=== PATIENT | female | born 1950 | race Caucasian/White ===

== ENCOUNTER → 2018-05-21 | Day surgery (SDC) | payer MEDICARE, OTHER ==
[2018-05-20 15:28] LABS: BASOPHILS # (AUTO) 0.1 (0.0-0.1); EOSINOPHILS # (AUTO) 0.4 (0.0-0.4); EOSINOPHILS % 5.6 % (0.0-6.0); HEMATOCRIT 35.7 % (34.2-44.1); LYMPHOCYTES # (AUTO) 1.2 (1.0-3.2); LYMPHOCYTES % 16.7 % (18.0-39.1); MEAN CORPUSCULAR HEMOGLOBIN 25.5 pg (28-32); MEAN CORPUSCULAR HGB CONC 30.8 g/dL (31-35); MEAN CORPUSCULAR VOLUME 82.6 fL (81-99); MONOCYTES # (AUTO) 0.8 (0.2-0.8); MONOCYTES % 10.9 % (4.4-11.3); NEUTROPHILS # (AUTO) 4.7 (2.1-6.9); NEUTROPHILS % 65.5 % (38.7-80.0); PLATELET COUNT 235 x10e3/uL (140-360); RED BLOOD COUNT 4.32 x10e6/uL (3.6-5.1); RED CELL DISTRIBUTION WIDTH 16.1 % (11.7-14.4)
[~2018-05-21] MED LIST: EFFEXOR XR 3737.5 MG PO; GABAPENTIN300 MG PO; PANTOPRAZOLE SO40 MG PO; PERCOCET 7.5-31 EACH PO; PROPOFOL IV EMULSION 10 MG/ML 20 ML VIAL ONE; ROBAXIN-750750 MG PO; SPIRONOLACTONE25 MG PO
--- OUTSIDE RECORDS SUMMARY | 2018-05-21 06:19 | XMS REPORT | Clinical Summary ---
Author Author [facility] Organization [facility] Address Unknown Phone Unavailable Care Team Providers Care Director Transition Name Role Phone Anastasia Iglesias DO PCP Unavailable Allergies No Known Allergies Medications End Date Status Medication Sig Dispensed Refills Start Date Active clonIDINE (CATAPRES) 0.1 Take 0.1 mg 0 MG tablet by mouth daily. Active acetaminophen-codeine Take 1 tablet 0 (TYLENOL WITH CODEINE #3) by mouth 300-30 mg per tablet every 12 (twelve) hours as needed for mild pain or moderate pain. Active ELIQUIS 5 mg tablet 0 8 Active oxyCODone-acetaminophen 0 (PERCOCET) 7.5-325 mg per 8 tablet Active gabapentin (NEURONTIN) TK 2 CS PO 5 300 mg capsule TID 8 Active venlafaxine XR TK 2 TS PO QD 0 (EFFEXOR-XR) 150 MG 24 hr 8 capsule Active tiZANidine (ZANAFLEX) 2 0 MG tablet 8 08/16/2017 Discontinued lisinopril Take by mouth 0 (PRINIVIL,ZESTRIL) 10 mg daily. tablet 08/16/2017 Discontinued gabapentin (NEURONTIN) Take 600 mg 0 600 mg tablet by mouth 3 (three) times a day. 08/16/2017 Discontinued levothyroxine (SYNTHROID, Take 175 mcg 0 LEVOXYL) 175 mcg tablet by mouth every morning. 08/16/2017 Discontinued keTOROlac (TORadol) 10 mg Take 10 mg by 0 tablet mouth every 8 (eight) hours. 08/27/2017 Discontinued furosemide (LASIX) 40 mg TK 1 T PO BID 3 tablet 8 09/26/2017 furosemide (LASIX) 40 mg Take 1 tablet 60 tablet 0 //201 tablet (40 mg total) 8 by mouth daily as needed (pitting edema) for up to 30 days. 09/26/2017 capsaicin (ZOSTRIX) 0.025 Apply 60 g 0 /20/201 % cream topically 3 8 (three) times a day for 30 days. Active Problems Problem Noted Date Bilateral leg edema 08/20/2017 Leg pain 08/16/2017 Lymphedema of both lower extremities 08/16/2017 Pain 12/28/2016 Encounters Care Team Description Date Type Specialty Caleb Hansen, ALYCE 08/23/2017 Anesthesia Orthopedic Surgery Event Elisabeth Cordova MD RIGHT TOTAL HIP REPLACEMENT 08/23/2017 Surgery Orthopedic Surgery Mack Zhao MD Leg swelling; Osteoarthritis of right hip, unspecified osteoarthritis type 08/16/2017 Hospital Orthopedic Surgery - Encounter 08/27/2017 Mack Zhao MD 08/16/2017 Documentation Internal Medicine Mack Zhao MD Leg swelling (Primary Dx) 08/16/2017 Orders Only Internal Medicine Elisabeth Cordova MD 08/16/2017 Orders Only Orthopedic Surgery Chacorta Collazo DO Pedal edema (Primary Dx); Chronic pain of right hip 07/31/2017 Emergency Emergency Medicine - 08/01/2017 Anastasia Iglesias DO Long-term (current) use of anticoagulants (Primary Dx) 06/19/2017 Lab Lab after 05/20/2017 Social History Date Tobacco Use Types Packs/Day Years Used Never Smoker Smokeless Tobacco: Never Used Alcohol Use Drinks/Week oz/Week Comments Yes a beer per month Sex Assigned at Date Recorded Not on file Industry Job Start Date Occupation Not on file Not on file Not on file Travel End Travel History Travel Start No recent travel history available. Last Filed Vital Signs Time Taken Vital Sign Reading 08/27/2017 12:31 PM CDT Blood Pressure 107/57 08/27/2017 12:31 PM CDT Pulse 69 08/27/2017 12:31 PM CDT Temperature 36.9 C (98.4 F) 08/27/2017 12:31 PM CDT Respiratory Rate 16 08/27/2017 12:31 PM CDT Oxygen Saturation 95% - Inhaled Oxygen - Concentration 08/26/2017 8:14 PM CDT Weight 74.8 kg (165 lb 0 oz) 08/26/2017 8:14 PM CDT Height 157.5 cm (5' 2") 08/26/2017 8:14 PM CDT Body Mass Index 30.18 Plan of Treatment Health Maintenance Due Date Last Done Comments BREAST CANCER SCREENING 08/07/2001 COLON CANCER SCREENING 08/07/2001 SHINGRIX VACCINE (1 of 2) 08/07/2001 ZOSTER VACCINE 2011 PNEUMOCOCCAL 08/07/2016 POLYSACCHARIDE VACCINE AGE 65 AND OVER PNEUMOCOCCAL-13 08/07/2016 INFLUENZA VACCINE 01/08/2018 Implants Device Identifier Shelf Expiration Date Model / Serial / Lot Implanted Type Area Manufactur er 04/09/2027 [id number] / / Screw Bone Canc Dome 6.5x25mm Ltxf Hip Joint Right: Hip DEPUY Hamilton - [id number] Implants ORTHO Implanted: Qty: 1 on 08/23/2017 by Elisabeth Cordova MD 04/09/2027 [id number] / / Screw Bone Canc Dome 6.5x25mm Ltxf Hip Joint Right: Hip DEPUY Hamilton - [id number] Implants ORTHO Implanted: Qty: 1 on 08/23/2017 by Elisabeth Cordova MD 03/09/2027 [id number] / / [id number] Shell Actblr Sector W/ Gription Hip Joint Right: Hip DEPUY 52mm Hamilton - [id number] Implants ORTHO-KNEE Implanted: Qty: 1 on 08/23/2017 by Elisabeth Marshall MD 03/09/2022 [id number] / / [id number] Liner Actblr Neut Altra Linked Pe Hip Joint Right: Hip DEPUY 77s87ar +4 Altrx - [id number] Implants ORTHO-KNEE Implanted: Qty: 1 on 08/23/2017 by Elisabeth Marshall MD 08/07/2026 [id number] / / [id number] Stem Hip Cmntls Tprd Procoat Pors Hip Joint Right: Hip DEPUY Ctng Hiofst Ti Alloy 150mm - Implants ORTHO [id number] Implanted: Qty: 1 on 08/23/2017 by Elisabeth Cordova MD 05/09/2022 [id number] / / [id number] [place] Fracture System Biolox Delta IPM Right: Hip DEPUY Ceramic Femoral Heads Size 36 +5.0 IMPLANT ORTHOPAEDI Mm Articul/Stanislav 05/23 [employer] Femoral Heads - [id number] Implanted: Qty: 1 on 08/23/2017 by Elisabeth Cordova MD Procedures Comments Procedure Name Priority Date/Time Associated Diagnosis HEMOGLOBIN & HEMATOCRIT Routine 08/25/2017 3:56 PM CDT HC COMPLETE BLD COUNT Routine 08/25/2017 W/AUTO DIFF 4:25 AM CDT ZZESTIMATED GFR Routine 08/25/2017 4:00 AM CDT BASIC METABOLIC PANEL Routine 08/25/2017 4:00 AM CDT ZZESTIMATED GFR Routine 08/24/2017 6:10 AM CDT BASIC METABOLIC PANEL Routine 08/24/2017 6:10 AM CDT HC COMPLETE BLD COUNT Routine 08/24/2017 W/AUTO DIFF 6:10 AM CDT XR PELVIS 1 OR 2 VW Routine 08/23/2017 4:28 PM CDT HEMOGLOBIN & HEMATOCRIT STAT 08/23/2017 4:15 PM CDT SURGICAL PATHOLOGY Routine 08/23/2017 REQUEST 4:13 PM CDT POC GLUCOSE Routine 08/23/2017 4:10 PM CDT IONIZED CALCIUM, ARTERIAL STAT 08/23/2017 3:09 PM CDT HEMOGLOBIN, SYRINGE STAT 08/23/2017 3:09 PM CDT POTASSIUM, SYRINGE STAT 08/23/2017 3:09 PM CDT SODIUM LEVEL, SYRINGE STAT 08/23/2017 3:09 PM CDT ARTERIAL BLOOD GAS STAT 08/23/2017 3:09 PM CDT XR PELVIS 1 OR 2 VW Routine 08/23/2017 3:01 PM CDT POC PANEL 4 Routine 08/23/2017 2:44 PM CDT ARTERIAL LINE Routine 08/23/2017 2:24 PM CDT Procedure Note - Gabby Roberts MD - 08/23/2017 2:24 PM CDT Arterial line Performed by: GABBY ROBERTS Authorized by: GABBY ROBERTS Patient Location: OR Start Time: 08/23/2017 1:14 PM End Time: 08/23/2017 1:18 PM Staff: Anesthesio logist: GABBY ROBERTS Performed by: Anesthesio logist Pre-proced ure: patient identified , IV checked, site and side verified, risks and benefits discussed, procedure verified, surgical consent complete, patient position confirmed, monitors and equipment checked and pre-op evaluation complete MSBT: antiseptic used, all elements of maximal sterile barrier technique followed, hand hygiene performed, cap/gown used by other personnel and solutions labeled TIme Out Performed: 08/23/2017 1:14 PM Indication s: Indication s: hemodynami c monitoring Anesthesia : Anesthesia : General Procedure Details: Arterial Line placement: Placed post induction Line placement site: Radial Line placement side: Right Arterial line gauge: 20 G Number of attempts: 1 Ultrasound guidance used: No Post-proce dure: Post-proce dure: Sterile dressing applied Post procedure circulatio n, sensation, movement: Normal Patient tolerance: Patient tolerated the procedure well with no immediate complicati ons Notes: Uncomplica [place] insertion; applicatio n of CHG sterile dressing SC AN ELECTIVE Routine 08/23/2017 ENDOTRACHEAL AIRWAY 1:57 PM CDT Procedure Note - Caleb Hansen CRNA - 08/23/2017 1:57 PM CDT Airway Date/Time: 08/23/2017 1:15 PM Performed by: CALEB HANSEN Authorized by: GABBY ROBERTS Location: OR Urgency: Elective Difficult Airway: No Preoxygena [place] with 100% O2: Yes C-spine Precaution s Maintained Throughout : Yes Mask Ventilatio n: Easy mask Final Airway Type: Endotrache al airway Final Endotrache al Airway: ETT Cuffed: Yes Technique Used: Direct laryngosco py Devices/Me thods Used in Placement: Intubatin g stylet Insertion Site: Oral Blade Type: Jaime Laryngosco pe Blade/Vide olaryngosc ope Blade Size: 2 ETT Size (mm): 7.0 Cuff at minimum occlusion pressure: Yes Measured from: Lips ETT to Lips (cm): 21 Placement Verified by: CO2 detection, direct visualizat ion and equal breath sounds Laryngosco pic view: Grade I - full view of glottis Rapid Sequence Induction (RSI): No Modified RSI: No Number of Attempts at Approach: 1 Eyes taped closed at LOC and prior to airway manipulati on. Easy mask ventilatio n. Atraumatic intubation att x 1 by FLOOR ASSEMBLER with Jaime #2. Cuff to seal. +EtCO2, +BBS. Dentition unchanged. No complicati ons. GLUCOSE LEVEL, SYRINGE Routine 08/23/2017 1:51 PM CDT IONIZED CALCIUM, ARTERIAL Routine 08/23/2017 1:51 PM CDT HEMOGLOBIN, SYRINGE Routine 08/23/2017 1:51 PM CDT POTASSIUM, SYRINGE Routine 08/23/2017 1:51 PM CDT SODIUM LEVEL, SYRINGE Routine 08/23/2017 1:51 PM CDT ARTERIAL BLOOD GAS Routine 08/23/2017 1:51 PM CDT ARTHROPLASTY, HIP, TOTAL 08/23/2017 Osteoarthritis of right 1:00 PM CDT hip, unspecified osteoarthritis type Case Notes REQ 1300 START; WIXSON HIP POSITIONER , SUMMIT DEPUY STEM, PINNACLE DEPUY CUP, CORDOVA RETRACTORS , NORMAL SUTURE AND STUFF FOR POSTERIOR HIP REPLACEMEN T Special Needs REQ 1300 START; WIXSON HIP POSITIONER , SUMMIT DEPUY STEM, PINNACLE DEPUY CUP, CORDOVA RETRACTORS , NORMAL SUTURE AND STUFF FOR POSTERIOR HIP REPLACEMEN T POC GLUCOSE Routine 08/23/2017 12:44 PM CDT PREPARE RBC Routine 08/23/2017 5:00 AM CDT TYPE AND SCREEN Routine 08/23/2017 5:00 AM CDT ZZESTIMATED GFR Routine 08/22/2017 5:20 AM CDT PROTHROMBIN TIME WITH INR Routine 08/22/2017 5:20 AM CDT COMPREHENSIVE METABOLIC Routine 08/22/2017 PANEL 5:20 AM CDT HC COMPLETE BLD COUNT Routine 08/22/2017 W/AUTO DIFF 5:20 AM CDT US DUPLEX VENOUS LOWER Routine 08/19/2017 EXTREMITY BILATERAL 7:50 AM CDT ECHOCARDIOGRAM 2D Routine 08/17/2017 COMPLETE W MMODE SPECTRAL 2:51 PM SOUND PRINTER COLOR DOPPLER ([id number]) MAGNESIUM LEVEL Routine 08/17/2017 4:47 AM SOUND PRINTER ZZESTIMATED GFR Routine 08/17/2017 4:47 AM SOUND PRINTER COMPREHENSIVE METABOLIC Routine 08/17/2017 PANEL 4:47 AM SOUND PRINTER HC COMPLETE BLD COUNT Routine 08/17/2017 W/AUTO DIFF 12:00 AM SOUND PRINTER B NATRIURETIC PEPTIDE Routine 08/17/2017 12:00 AM SOUND PRINTER ZZESTIMATED GFR Routine 08/16/2017 10:40 PM SOUND PRINTER MAGNESIUM LEVEL Routine 08/16/2017 10:40 PM SOUND PRINTER COMPREHENSIVE METABOLIC Routine 08/16/2017 PANEL 10:40 PM SOUND PRINTER ZZESTIMATED GFR STAT 08/01/2017 12:21 AM SOUND PRINTER BASIC METABOLIC PANEL STAT 08/01/2017 12:21 AM SOUND PRINTER ZZESTIMATED GFR STAT 07/29/2017 12:00 PM SOUND PRINTER B NATRIURETIC PEPTIDE STAT 07/29/2017 Atrial fibrillation, 12:00 PM SOUND PRINTER unspecified type Chronic heart failure, unspecified heart failure type BASIC METABOLIC PANEL STAT 07/29/2017 Atrial fibrillation, 12:00 PM SOUND PRINTER unspecified type Chronic heart failure, unspecified heart failure type PROTHROMBIN TIME WITH INR STAT 07/29/2017 Atrial fibrillation, 12:00 PM SOUND PRINTER unspecified type Chronic heart failure, unspecified heart failure type MAGNESIUM LEVEL STAT 07/29/2017 Atrial fibrillation, 12:00 PM SOUND PRINTER unspecified type Chronic heart failure, unspecified heart failure type PROTHROMBIN TIME WITH INR Routine 06/19/2017 Long-term (current) use 1:00 PM SOUND PRINTER of anticoagulants after 05/20/2017 Results * Hemoglobin & hematocrit (08/25/2017 3:56 PM CDT) Only the most recent of 2 results within the time period is included. HGB 9.1 (L) 12.0 - 16.0 g/dL [facility] DEPARTMENT OF PATHOLOGY AND GENOMIC MEDICINE HCT 28.6 (L) 37.0 - 47.0 % [facility] DEPARTMENT OF PATHOLOGY AND GENOMIC MEDICINE Specimen Blood Performing Organization Address City/State/Zipcode Phone Number [facility] DEPARTMENT OF [address] [place] [address] PATHOLOGY AND GENOMIC MEDICINE * CBC with platelet and differential (08/25/2017 4:25 AM CDT) Only the most recent of 4 results within the time period is included. WBC 10.26 4.50 - 11.00 k/uL [facility] DEPARTMENT OF PATHOLOGY AND GENOMIC MEDICINE RBC 3.50 (L) 4.20 - 5.50 m/uL [facility] DEPARTMENT OF PATHOLOGY AND GENOMIC MEDICINE HGB 9.2 (L)Comment: Results double 12.0 - 16.0 g/dL [facility] DEPARTMENT OF checked. PATHOLOGY AND GENOMIC MEDICINE HCT 28.3 (L) 37.0 - 47.0 % [facility] DEPARTMENT OF PATHOLOGY AND GENOMIC MEDICINE MCV 80.9 (L) 82.0 - 100.0 fL [facility] DEPARTMENT OF PATHOLOGY AND GENOMIC MEDICINE MCH 26.3 (L) 27.0 - 34.0 pg [facility] DEPARTMENT OF PATHOLOGY AND GENOMIC MEDICINE MCHC 32.5 31.0 - 37.0 g/dL [facility] DEPARTMENT OF PATHOLOGY AND GENOMIC MEDICINE RDW - SD 48.6 37.0 - 55.0 fL [facility] DEPARTMENT OF PATHOLOGY AND GENOMIC MEDICINE MPV 12.1 8.8 - 13.2 fL [facility] DEPARTMENT OF PATHOLOGY AND GENOMIC MEDICINE Platelet count 209 150 - 400 k/uL [facility] DEPARTMENT OF PATHOLOGY AND GENOMIC MEDICINE Nucleated RBC 0.00 /100 WBC [facility] DEPARTMENT OF PATHOLOGY AND GENOMIC MEDICINE Neutrophils 75.6 (H) 39.0 - 69.0 % [facility] DEPARTMENT OF PATHOLOGY AND GENOMIC MEDICINE Lymphocytes 8.5 (L) 25.0 - 45.0 % [facility] DEPARTMENT OF PATHOLOGY AND GENOMIC MEDICINE Monocytes 14.5 (H) 0.0 - 10.0 % [facility] DEPARTMENT OF PATHOLOGY AND GENOMIC MEDICINE Eosinophils 0.4 0.0 - 5.0 % [facility] DEPARTMENT OF PATHOLOGY AND GENOMIC MEDICINE Basophils 0.5 0.0 - 1.0 % [facility] DEPARTMENT OF PATHOLOGY AND GENOMIC MEDICINE Immature granulocytes 0.5Comment: "Immature 0.0 - 1.0 % [facility] DEPARTMENT OF granulocytes" (promyelocytes, PATHOLOGY AND myelocytes, metamyelocytes) GENOMIC MEDICINE Specimen Blood Performing Organization Address City/[facility] Phone Number [place] [phone] PATHOLOGY AND [facility] * Estimated GFR (08/25/2017 4:00 AM CDT) Only the most recent of 7 results within the time period is included. GFR Non Af Amer 84 mL/min/1.73 m2 [facility] DEPARTMENT OF PATHOLOGY AND GENOMIC MEDICINE GFR Af Amer >90 mL/min/1.73 m2 [facility] DEPARTMENT OF Comment: PATHOLOGY AND Chronic kidney disease: <60 GENOMIC MEDICINE mL/min/1.73m2 Kidney failure: <15 mL/min/1.73m2 The estimated GFR is calculated from the IDMS-traceable Modification of Diet in Renal Disease Equation. The accuracy of the calculation is poor when the creatinine is normal. Calculated values >90 mL/min/1.73m2 are not reported. This equation has not been validated in children (<18 years), women, the elderly (>70 years), or ethnic groups other than Caucasians and Americans. Specimen Plasma specimen Performing Organization Address City/State/Zipcode Phone Number [address] [address] PATHOLOGY [facility] * Basic metabolic panel (08/25/2017 4:00 AM CDT) Only the most recent of 4 results within the time period is included. Sodium 135 135 - 148 mEq/L [facility] DEPARTMENT OF PATHOLOGY AND GENOMIC MEDICINE Potassium 3.7 3.5 - 5.0 mEq/L [facility] DEPARTMENT OF PATHOLOGY AND GENOMIC MEDICINE Chloride 99 98 - 112 mEq/L [facility] DEPARTMENT OF PATHOLOGY AND GENOMIC MEDICINE CO2 24 24 - 31 mEq/L [facility] DEPARTMENT OF PATHOLOGY AND GENOMIC MEDICINE Anion gap 12 7 - 15 mEq/L [facility] DEPARTMENT OF Comment: PATHOLOGY AND Starting from September GENOMIC MEDICINE , anion gap calculation no longer incorporates potassium. Please note the change. BUN 19 8 - 23 mg/dL [facility] DEPARTMENT OF PATHOLOGY AND GENOMIC MEDICINE Creatinine 0.7 0.5 - 0.9 mg/dL [facility] DEPARTMENT OF PATHOLOGY AND GENOMIC MEDICINE Glucose 128 (H) 65 - 99 mg/dL [facility] DEPARTMENT OF PATHOLOGY AND GENOMIC MEDICINE Calcium 8.7 (L) 8.8 - 10.2 mg/dL [facility] DEPARTMENT OF PATHOLOGY AND GENOMIC MEDICINE Specimen Plasma specimen Performing Organization Address City/State/Zipcode Phone Number [address] [address] PATHOLOGY AND GENOMIC MEDICINE * XR Pelvis 1 Or 2 Vw (08/23/2017 4:28 PM CDT) Only the most recent of 2 results within the time period is included. Narrative Performed At EXAMINATION:XR PELVIS 1 OR 2 VW RADIANT CLINICAL HISTORY:Post operative COMPARISON:Earlier today IMPRESSION: Follow-up exam demonstrates completed right hip replacement to demonstrate good alignment. No fractures are seen. [id number] Procedure Note Interface, Radiology Results Incoming - 08/23/2017 4:45 PM CDT EXAMINATION: XR PELVIS 1 OR 2 VW CLINICAL HISTORY: Post operative COMPARISON: Earlier today IMPRESSION: Follow-up exam demonstrates completed right hip replacement to demonstrate good alignment. No fractures are seen. [id number] Performing Organization Address City/[facility]/Zipcode Phone Number [facility] [address] [place] [phone] * Surgical pathology request (08/23/2017 4:13 PM CDT) [facility] DEPARTMENT OF PATHOLOGY AND GENOMIC MEDICINE Surgical pathology report See link below for PDF Lab [facility] DEPARTMENT OF Report PATHOLOGY AND GENOMIC MEDICINE Result status This is Final Report to [facility] DEPARTMENT OF [id number] PATHOLOGY AND GENOMIC MEDICINE Performing Organization Address City/[facility] Mex[facility]ode Phone Number [facility] [place] [address] PATHOLOGY AND GENOMIC MEDICINE * POC glucose (08/23/2017 4:10 PM CDT) Only the most recent of 2 results within the time period is included. POC glucose 119 (H) 65 - 99 mg/dL [facility] DEPARTMENT OF Comment: PATHOLOGY AND [facility] Notified RN GENOMIC MEDICINE Meter ID: [id number] Vertical Contour Band Saw Operator: Isaac Garcias Performing Organization Address City/[facility] Mex[facility]ode Phone Number [facility] [place] [address] PATHOLOGY AND GENOMIC MEDICINE * Sodium level, syringe (08/23/2017 3:09 PM CDT) Only the most recent of 2 results within the time period is included. Sodium, syringe 139 135 - 148 mEq/L [facility] DEPARTMENT OF PATHOLOGY AND GENOMIC MEDICINE Specimen Blood Performing Organization Address [facility] Phone Number [facility] [place] [address] PATHOLOGY AND GENOMIC MEDICINE * Potassium, syringe (08/23/2017 3:09 PM CDT) Only the most recent of 2 results within the time period is included. Potassium, syringe 3.9 3.5 - 5.0 mEq/L [facility] DEPARTMENT OF PATHOLOGY AND GENOMIC MEDICINE Specimen Blood Performing Organization Address [facility] Phone Number [facility] [place] [address] PATHOLOGY AND GENOMIC MEDICINE * Ionized calcium, arterial (08/23/2017 3:09 PM CDT) Only the most recent of 2 results within the time period is included. Ionized calcium, arterial 1.06 (L) 1.11 - 1.32 mmol/L [facility] DEPARTMENT OF PATHOLOGY AND GENOMIC MEDICINE Specimen Blood Performing Organization Address City/[facility] Phone Number [facility] [place] [address] PATHOLOGY AND GENOMIC MEDICINE * Hemoglobin, syringe (08/23/2017 3:09 PM CDT) Only the most recent of 2 results within the time period is included. Hemoglobin, syringe 9.7 (L) 12.0 - 16.0 g/dL [facility] DEPARTMENT OF PATHOLOGY AND GENOMIC MEDICINE Specimen Blood Performing Organization Address City/[facility] [place] [address] PATHOLOGY AND GENOMIC MEDICINE * Arterial blood gas (08/23/2017 3:09 PM CDT) Only the most recent of 2 results within the time period is included. pH, arterial 7.37 7.35 - 7.45 [facility] DEPARTMENT OF PATHOLOGY AND GENOMIC MEDICINE pCO2, arterial 37 35 - 45 mmHg [facility] DEPARTMENT OF PATHOLOGY AND GENOMIC MEDICINE pO2, arterial 307 (H) 80 - 90 mmHg [facility] DEPARTMENT OF PATHOLOGY AND GENOMIC MEDICINE Bicarbonate, arterial 21.2 21.0 - 28.0 mmol/L [facility] DEPARTMENT OF PATHOLOGY AND GENOMIC MEDICINE Base excess, arterial -3 (L) -2 - 2 mEq/L [facility] DEPARTMENT OF PATHOLOGY AND GENOMIC MEDICINE O2 saturation, arterial 100 95 - 100 % [facility] DEPARTMENT OF PATHOLOGY AND GENOMIC MEDICINE Specimen Blood Performing Organization Address [facility] [place] [address] PATHOLOGY AND GENOMIC MEDICINE * POC panel 4 (08/23/2017 2:44 PM CDT) POC sodium 140 135 - 148 mmol/L [facility] DEPARTMENT OF PATHOLOGY AND GENOMIC MEDICINE POC potassium 3.4 (L) 3.5 - 5.0 mmol/L [facility] DEPARTMENT OF PATHOLOGY AND GENOMIC MEDICINE POC hematocrit 27 (L) 37 - 47 % [facility] DEPARTMENT OF PATHOLOGY AND GENOMIC MEDICINE POC glucose 114 (H) 65 - 99 mg/dL [facility] DEPARTMENT OF Comment: PATHOLOGY AND Meter ID: [id number] [employer] Vertical Contour Band Saw Operator: Zo Billings Performing Organization Address [facility] [place] [address] PATHOLOGY AND GENOMIC MEDICINE * Glucose level, syringe (08/23/2017 1:51 PM CDT) Glucose, syringe 94 65 - 99 mg/dL [facility] DEPARTMENT OF PATHOLOGY AND GENOMIC MEDICINE Specimen Blood Performing Organization Address [facility] [place] [address] PATHOLOGY AND GENOMIC MEDICINE * Prepare RBC (08/23/2017 5:00 AM CDT) Product name Red Blood Cells -1, Leukored [facility] DEPARTMENT OF PATHOLOGY AND GENOMIC MEDICINE Unit number [id number] [facility] DEPARTMENT OF PATHOLOGY AND GENOMIC MEDICINE Product code [id number] [facility] DEPARTMENT OF PATHOLOGY AND GENOMIC MEDICINE Dispense status Transfused [facility] DEPARTMENT OF PATHOLOGY AND GENOMIC MEDICINE Blood expiration date [facility] DEPARTMENT OF PATHOLOGY AND GENOMIC MEDICINE Blood type code 6200 [facility] [place] [facility] AND [facility]OMIC MEDICINE Blood type A POSITIVE [facility] DEPARTMENT OF PATHOLOGY AND GENOMIC MEDICINE Product name Red Blood Cells -1, Leukored [facility] DEPARTMENT OF PATHOLOGY AND GENOMIC MEDICINE Unit number [id number] [facility] DEPARTMENT OF PATHOLOGY AND GENOMIC MEDICINE Product code [id number] [facility] DEPARTMENT OF PATHOLOGY AND GENOMIC MEDICINE Dispense status Transfused [facility] DEPARTMENT OF PATHOLOGY AND GENOMIC MEDICINE Blood expiration date [facility] DEPARTMENT OF PATHOLOGY AND GENOMIC MEDICINE Blood type code 6200 [facility] DEPARTMENT OF PATHOLOGY AND GENOMIC MEDICINE Blood type A POSITIVE [facility] DEPARTMENT OF PATHOLOGY AND GENOMIC MEDICINE Performing Organization Address City/[facility] [place] [address] PATHOLOGY AND GENOMIC MEDICINE * Type and screen (08/23/2017 5:00 AM CDT) ABO grouping A [facility] DEPARTMENT OF PATHOLOGY AND GENOMIC MEDICINE Rh type POS [facility] DEPARTMENT OF PATHOLOGY AND GENOMIC MEDICINE Antibody screen (gel) NEG [facility] DEPARTMENT OF PATHOLOGY AND GENOMIC MEDICINE Performing Organization Address City/[facility] [place] [address] PATHOLOGY AND GENOMIC MEDICINE * Prothrombin time with INR (08/22/2017 5:20 AM CDT) Only the most recent of 3 results within the time period is included. Prothrombin time 14.2 12.0 - 15.0 sec [facility] DEPARTMENT OF PATHOLOGY AND GENOMIC MEDICINE INR 1.1 [facility] DEPARTMENT OF Comment: PATHOLOGY AND The International Normalized GENOMIC MEDICINE Ratio (INR) is a therapeutic monitoring tool for patients who are stable on oral anticoagulant therapy. An INR of 2.0-3.0 is suggested for deep vein thrombosis/pulmonary embolism. Specimen Blood Performing Organization Address City/[facility] [place] [address] PATHOLOGY AND GENOMIC MEDICINE * Comprehensive metabolic panel (08/22/2017 5:20 AM CDT) Only the most recent of 3 results within the time period is included. Sodium 144 135 - 148 mEq/L [facility] DEPARTMENT OF PATHOLOGY AND GENOMIC MEDICINE Potassium 3.8 3.5 - 5.0 mEq/L [facility] DEPARTMENT OF PATHOLOGY AND GENOMIC MEDICINE Chloride 106 98 - 112 mEq/L [facility] DEPARTMENT OF PATHOLOGY AND GENOMIC MEDICINE CO2 24 24 - 31 mEq/L [facility] DEPARTMENT OF PATHOLOGY AND GENOMIC MEDICINE Anion gap 14 7 - 15 mEq/L [facility] DEPARTMENT OF Comment: PATHOLOGY AND Starting from September GENOMIC MEDICINE , anion gap calculation no longer incorporates potassium. Please note the change. BUN 21 8 - 23 mg/dL [facility] DEPARTMENT OF PATHOLOGY AND GENOMIC MEDICINE Creatinine 0.6 0.5 - 0.9 mg/dL [facility] DEPARTMENT OF PATHOLOGY AND GENOMIC MEDICINE Glucose 89 65 - 99 mg/dL [facility] DEPARTMENT OF PATHOLOGY AND GENOMIC MEDICINE Calcium 9.6 8.8 - 10.2 mg/dL [facility] DEPARTMENT OF PATHOLOGY AND GENOMIC MEDICINE Protein 6.5 6.3 - 8.3 g/dL [facility] DEPARTMENT OF Comment: PATHOLOGY AND [place] GENOMIC MEDICINE 4.6-7.0 g/dL 1 week 4.4-7.6 g/dL 7 months-1year 5.1-7.3 g/dL 1-2 years5.6-7 .5 g/dL >3 years6.0-8 .0 g/dL 18-150 6.3-8.3 g/dL Albumin 2.8 (L) 3.5 - 5.0 g/dL [facility] DEPARTMENT OF PATHOLOGY AND GENOMIC MEDICINE A/G ratio 0.8 0.7 - 3.8 [facility] DEPARTMENT OF PATHOLOGY AND GENOMIC MEDICINE Alkaline phosphatase 70 35 - 104 U/L [facility] DEPARTMENT OF PATHOLOGY AND GENOMIC MEDICINE AST 16 10 - 35 U/L [facility] DEPARTMENT OF PATHOLOGY AND GENOMIC MEDICINE ALT 13 5 - 50 U/L [facility] DEPARTMENT OF PATHOLOGY AND GENOMIC MEDICINE Total bilirubin <0.2 0.0 - 1.2 mg/dL [facility] DEPARTMENT OF PATHOLOGY AND GENOMIC MEDICINE Specimen Plasma specimen Performing Organization Address City/State/Zipcode Phone Number [facility] DEPARTMENT OF [address] [place] [phone] PATHOLOGY AND GENOMIC MEDICINE * PV duplex venous lower extremity (08/19/2017 7:50 AM CDT) Narrative Performed At [facility] Vascular Ultrasound Laboratory Lower Extremity Venous Report [address] [place] [address] Pat.Name:DESTINY OWENS Pat.ID:[id number] .Date: 08/19/2017 Refer.MD:MACK ZHAO MD Exam Time: 7:55:00 AMStudy Type:LE Venous DOBAge:1950,67Y Sex: FEMALE Sonogrphr: Diane Muse RVTPat. Stat.:Inpatient Room:D860B TapeVol: [place], CPT - 4: 83518 Echo Event ID:[id number] Order ID:[id number] Reason for Study:Progressive bilateral leg swelling x 2 weeks with weeping. Right hip pain. Race:C SUMMARY: DUPLEX SCAN OBSERVATIONS Deep VeinsSuperficial Veins RightLeft RightLeft EIV GSV (prox) NormalNormal CFV Normal Normal (above knee) Femoral Normal Normal GSV (dist) Normal Normal Profunda Normal Normal (below knee) Popliteal Normal Normal PT (prox) Not Visualized NormalSSV Normal Not Visualized PT (dist) Not Visualized Normal Peroneal Not Visualized Not Visualized RIGHT:There is normal compressibility with no evidence of echogenic material noted within the lumen of the visualized veins. Colorflow and Doppler signals are normal. LEFT: There is normal compressibility with no evidence of echogenic material noted within the lumen of the visualized veins. Colorflow and Doppler signals are normal. PRELIMINARY FINDINGS 1. Limited study due to patient's leg position. 2. No evidence of venous thrombosis of the visualized veins. PHYSICIAN INTERPRETATION 1.Venous examination of the both lower extremities demonstrates no evidence of venous thrombosis. Signed 08/19/2017 10:03 AM Jensen Vargas MD Procedure Note Interface, Radiology Results In - 08/19/2017 10:04 AM T Vascular Ultrasound Laboratory Lower Extremity Venous Report [id number] [address] Pat.Name: DESTINY OWENS Dianelys.ID: [id number] .Date: 08/19/2017 Refer.MD: MACK ZHAO MD Exam Time: 7:55:00 AM Study Type:LE Venous Age: 2 1950,67Y Sex: FEMALE Sonogrphr: RADHA Cobos. Stat.:Inpatient Room: D860B Tape Vol: [place], [facility] - 4: 16631 Echo Event ID:[id number] Order ID: [id number] Reason for Study:Progressive bilateral leg swelling x 2 weeks with weeping. Right hip pain. Race: C SUMMARY: DUPLEX SCAN OBSERVATIONS Deep Veins Superficial Veins Right Left Right Left EIV GSV (prox) Normal Normal CFV Normal Normal (above knee) Femoral Normal Normal GSV (dist) Normal Normal Profunda Normal Normal (below knee) Popliteal Normal Normal PT (prox) Not Visualized Normal SSV Normal Not Visualized PT (dist) Not Visualized Normal Peroneal Not Visualized Not Visualized RIGHT: There is normal compressibility with no evidence of echogenic material noted within the lumen of the visualized veins. Colorflow and Doppler signals are normal. LEFT: There is normal compressibility with no evidence of echogenic material noted within the lumen of the visualized veins. Colorflow and Doppler signals are normal. PRELIMINARY FINDINGS 1. Limited study due to patient's leg position. 2. No evidence of venous thrombosis of the visualized veins. PHYSICIAN INTERPRETATION 1. Venous examination of the both lower extremities demonstrates no evidence of venous thrombosis. Signed 08/19/2017 10:03 AM Jensen Vargas MD Performing Organization Address City/[facility]/Zipcode Phone Number [facility] [address] [place] [address] * Echocardiogram complete w contrast and 3D if needed (08/17/2017 2:51 PM SOUND PRINTER) Narrative Performed At [facility] Echocardiography Report [id number]Name:DESTINY OWENS Dianelys.ID:[id number] .Date: 08/17/2017 Refer.MD:MACK ZHAO MD Exam Time: 2:43:00 PMStudy Type:Routine Echo Height:63inWeight:215lb BSA: 2 k6UEGSnk:1950,67Y Sex: FEMALEBP:134/67 HR:69 bpmSonogrphr: SHIN Ma Pat. Stat.:Inpatient Room:D 860B Study Status:Final Echo Event ID:[id number] Order ID:[id number] Reason for Study:Edema Procedures:2D Echo, Colorflow Doppler, 3D Echo, Strain Race:C SUMMARY: LV size is normal. LV EF is normal. FINDINGS: LV: LV size is normal. LV EF is normal. Overall wall motion is normal.Estimated EF is 60-64%. RV: RV size is normal. RV systolic function is normal. LA: LA size is normal. RA: RA size is normal. AO: Aortic root diameter is normal. TAYLER: No pericardial effusion. AV: No structural AV abnormalities noted. A trace of aortic regurgitation. MV: No structural MV abnormalities noted. PV: No structural PV abnormalities noted. TV: No structural TV abnormalities noted. A trace of tricuspid regurgitation Martinez: Normal diastolic function. Other:Estimated PA systolic pressure is 30 mmHg, assuming a mean RAPof 5 mmHg. MEASUREMENTS: 2D Parasternal [place] LVOT 1.8 cmLA Ds4.2 cm LVIDd4.8 cmIndex2.4 cm/m Ao An1.9 cm LVIDs3.1 cmAo Rtd 2.9 cm Index1.5 cm/m LV%fs 36.4 % LV Gbqd235.6 g(87-129) IVSd 1.1 cmLVM Pcjsz905.8 g/m2 LVPWd1.2 cmRWT0.5 LA Sng Plane LA Area 17.4 cm2(8.8-23.4) LA Vol49 ml Index24.5 ml/m LA LngAx 4.9 cm RA Sng Plane RA Area 13.5 cm2(8.3-19.5) RA Vol26.1 ml Index13.1 ml/m RA LngAx 5.7 cm Signed 08/17/2017 04:15 PM Brian Junior MD Procedure Note Interface, Radiology Results In - 08/17/2017 4:16 PM [facility] [address] [place] [address] Pat.Name: DESTINY OWENS.ID: [id number] St.Date: 08/17/2017 Refer.MD: MACK ZHAO MD Exam Time: 2:43:00 PM Study Type:Routine Echo Height: 63in Weight: 215lb BSA: 2 m2 Age: 2 1950,67Y Sex: FEMALE BP: 134/67 HR: 69 bpm Sonogrphr: SHIN Ma Pat. Stat.:Inpatient Room: [facility] Study Status:Final Echo Event ID:[id number] Order ID: [id number] Reason for Study:Edema Procedures:2D Echo, Colorflow Doppler, 3D Echo, Strain Race: C SUMMARY: LV size is normal. LV EF is normal. FINDINGS: LV: LV size is normal. LV EF is normal. Overall wall motion is normal. Estimated EF is 60-64%. RV: RV size is normal. RV systolic function is normal. LA: LA size is normal. RA: RA size is normal. AO: Aortic root diameter is normal. TAYLER: No pericardial effusion. AV: No structural AV abnormalities noted. A trace of aortic regurgitation. MV: No structural MV abnormalities noted. PV: No structural PV abnormalities noted. TV: No structural TV abnormalities noted. A trace of tricuspid regurgitation Martinez: Normal diastolic function. Other: Estimated PA systolic pressure is 30 mmHg, assuming a mean RAP of 5 mmHg. MEASUREMENTS: 2D Parasternal [place] LVOT 1.8 cm LA Ds 4.2 cm LVIDd 4.8 cm Index 2.4 cm/m Ao An 1.9 cm LVIDs 3.1 cm Ao Rtd 2.9 cm Index 1.5 cm/m LV%fs 36.4 % LV Mass 203.6 g (87-129) IVSd 1.1 cm LVM Index 101.8 g/m2 LVPWd 1.2 cm RWT 0.5 LA Sng Plane LA Area 17.4 cm2 (8.8-23.4) LA Vol 49 ml Index 24.5 ml/m LA LngAx 4.9 cm RA Sng Plane RA Area 13.5 cm2 (8.3-19.5) RA Vol 26.1 ml Index 13.1 ml/m RA LngAx 5.7 cm Signed 08/17/2017 04:15 PM Brian Junior MD Performing Organization Address City/[facility]/Zipcode Phone Number [facility] [address] [place] [address] * Magnesium level (08/17/2017 4:47 AM SOUND PRINTER) Only the most recent of 3 results within the time period is included. Magnesium 1.9 1.6 - 2.4 mg/dL [facility] DEPARTMENT OF PATHOLOGY AND GENOMIC MEDICINE Specimen Plasma specimen Performing Organization Address City/[facility]/Zipcode Phone Number [facility] DEPARTMENT OF [address] [place] [address] PATHOLOGY AND GENOMIC MEDICINE * B natriuretic peptide (08/17/2017 12:00 AM SOUND PRINTER) Only the most recent of 2 results within the time period is included. BNP 31 0 - 100 pg/mL [facility] DEPARTMENT OF PATHOLOGY AND GENOMIC MEDICINE Specimen Blood Performing Organization Address City/State/Zipcode Phone Number [facility] DEPARTMENT OF [address] [place] [address] PATHOLOGY AND GENOMIC MEDICINE after 05/20/2017 Insurance Payer Benefit Subscriber ID Type Phone Address Plan / Group MEDICARE MEDICARE xxxxxxxxxxx Medicare [place], [place] PART A AND B [employer] xxxxxxxxxx Commercial L [employer] [place] Advance Directives Patient has advance care planning documents on file. For more information, aysha kent contact: Georgi Marques [address] [place] [address]
--- OUTSIDE RECORDS SUMMARY | 2018-05-21 06:20 | XMS REPORT | Summary of Care ---
Author Author [facility] Organization [facility] Address Unknown Phone Unavailable Encounter HQ Rian(FIN) [id number] Date(s): 07/30/17 - 07/30/17 [facility] [address] [place] [address] 7 [phone] Encounter Diagnosis Encounter for preprocedural cardiovascular examination (Final) - 08/02/17 Cardiac murmur, unspecified (Final) - Localized edema (Final) - Nonrheumatic tricuspid (valve) insufficiency (Final) - Heart failure, unspecified (Final) - Hypertensive heart disease with heart failure (Final) - Hypothyroidism, unspecified (Final) - Discharge Disposition: Home or Self Care Attending Physician: Gio Hemphill DO Referring Physician: Gio Hemphill DO Vital Signs Most recent to 1 oldest [Reference Range]: Height 160.02 cm (07/30/17 2:20 PM) Blood Pressure 124/63 mmHg [90-140/60-90 mmHg] (07/30/17 2:20 PM) Peripheral Pulse 65 bpm Rate [60-100 bpm] (07/30/17 2:20 PM) Weight 79.545 kg (07/30/17 2:20 PM) Body Mass Index 31.06 m2 (07/30/17 2:20 PM) Problem List Condition Effective Dates Status Health Status Informant Anemia1 Active Atypical chest pain2 06/14/14 Active Benign hypertension3 Active Bipolar disorder4 Active Congestive heart 12/10/11 Active failure5 Dog bite - wound6, 07/15/14 Active 7, 8 Electrocardiogram 02/09/14 Active abnormal9 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 qhskzqmofubfvqday65, 11 Ymghnmuzthrlkx93 Active Impaired fasting 03/11/14 Active tfxyfyppk14 Injury of head14 06/14/14 Active Knee pain15 05/21/08 Active Neck pain16 06/14/14 Active Wezehgj35 Active Jxfyltnefezlbj39 11/24/08 Active Zhonwyhyqgvq47 11/24/08 Active Postmenopausal 08/20/11 Active state20 Posttraumatic stress Active Reactive airways Active dysfunction ihkhlzvn26 Shoulder joint 06/14/14 Active pain23 Shoulder pain24 06/30/08 Active Sleep apnea25 Active 1Data migrated from [employer] on 11/06/14. 2Data migrated from [employer] on 11/06/14. 3Data migrated from [employer] on 11/06/14. 4Data migrated from [employer] on 11/06/14. 5Data migrated from [employer] on 11/06/14. 6Data migrated from [employer] on 12/15/14. 7Data migrated from [employer] on 12/15/14. 8Data migrated from [employer] on 11/10/14. 9Data migrated from [employer] on 11/06/14. 10Data migrated from [employer] on 12/25/14. 11Data migrated from [employer] on 12/24/14. 12Data migrated from [employer] on 11/06/14. 13Data migrated from [employer] on 11/06/14. 14Data migrated from [employer] on 11/06/14. 15Data migrated from [employer] on 11/06/14. 16Data migrated from [employer] on 11/06/14. 17Data migrated from [employer] on 11/06/14. 18Data migrated from [employer] on 11/06/14. 19Data migrated from [employer] on 11/06/14. 20Data migrated from [employer] on 11/06/14. 21Data migrated from [employer] on 11/06/14. 22Data migrated from [employer] on 11/06/14. 23Data migrated from [employer] on 11/06/14. 24Data migrated from [employer] on 11/06/14. 25Data migrated from [employer] on 11/06/14. Allergies, Adverse Reactions, Alerts Substance Reaction Severity Status NKDA Active Medications furosemide 40 mg oral tablet 40 mg=1 tab, PO, Daily, 0 Refill(s) Start Date: 07/30/17 Status: Ordered Lasix 40 mg oral tablet 40 mg=1 tab, PO, BID, # 60 tab, 3 Refill(s), Pharmacy: [id number] Start Date: 07/30/17 Status: Ordered potassium chloride 20 mEq oral tablet, extended release 20 mEq=1 tab, PO, BID, # 60 tab, 3 Refill(s), Pharmacy: [id number] Start Date: 07/30/17 Status: Ordered Xarelto 20 mg oral tablet 20 mg=1 tab, PO, QPM, # 30 tab, 3 Refill(s), Pharmacy: [id number] Start Date: 10/24/17 Stop Date: 02/21/18 Status: Ordered Results No data available for this section Immunizations Given and Recorded Vaccine Date Status Refusal Reason diphtheria/pertussis, acel/tetanus adult1 07/15/14 Given 1Result Comment: [facility]# [id number] ; Data migrated from [facility] on 07/13/2015. Procedures Procedure Date Related Diagnosis Body Site Status Hip replacement Completed Operation Completed Tonsillectomy and adenoidectomy Completed Tubal ligation Completed Social History Social History Type Response Substance Abuse Use: None. Alcohol Never Smoking Status Never smoker; Exposure to Tobacco Smoke None; Cigarette Smoking Last 365 Days No; Reg Smoking Cessation Counseling No entered on: 07/30/17 Assessment and Plan No data available for this section
--- OUTSIDE RECORDS SUMMARY | 2018-05-21 06:20 | XMS REPORT | Summary of Care ---
Author Organization Unknown Address Unknown Phone Unavailable Encounter HQ Jsrevasayda_adolfo(BELÉN) [id number] Date(s): 06/16/14 - 06/16/14 [facility] Outpatient Imaging [address] Discharge Disposition: Home Physician Attending: Sherlyn Rodriguez MD Reason for Visit 959.01 - HEAD INJURY NOS Problem List No data available for this section Allergies, Adverse Reactions, Alerts Substance Reaction Severity Status NKDA Active Medications No data available for this section Medications Administered During Your Visit No data available for this section Immunizations No data available for this section
--- OUTSIDE RECORDS SUMMARY | 2018-05-21 06:20 | XMS REPORT | CCD ---
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
--- OUTSIDE RECORDS SUMMARY | 2018-05-21 06:20 | XMS REPORT | Summary of Care ---
Author Organization Unknown Address Unknown Phone Unavailable Encounter Dates Location Diagnoses Discharge Providers Disposition 08/06/2013 [facility] Outpatient Imaging Home Mirtha Briceno 08/06/[address] [place] [address] Reason for Visit 239.24 - JOINT PAIN-L/LE Problem List No data available for this section Allergies, Adverse Reactions, Alerts Status Substance Reaction Severity Active NKDA Medications No data available for this section Medications Administered During Your Visit No data available for this section Immunizations No data available for this section
--- OUTSIDE RECORDS SUMMARY | 2018-05-21 06:20 | XMS REPORT | Summary of Care ---
Author Organization Unknown Address Unknown Phone Unavailable Encounter ISAAC Modi(BELÉN) [id number] Date(s): 03/02/14 - 03/02/14 [facility] [address] [address] Discharge Disposition: Home Physician Attending: Emerson Henson MD Physician Admitting: Emerson Henson MD Physician_Referring: Emerson Henson MD Reason for Visit 786.50 Vital Signs Most recent to 1 oldest [Reference Range]: Height 160.02 cm (03/02/14 7:46 AM) Weight 88 kg (03/02/14 7:46 AM) Body Mass Index 34.37 m2 (03/02/14 7:46 AM) Problem List No data available for this section Allergies, Adverse Reactions, Alerts Substance Reaction Severity Status NKDA Active Medications acetaminophen-hydrocodone 325 mg-5 mg oral tablet 1 tab, Route: PO, Drug Form: TAB, Dosing Weight 88, kg, Q4H, PRN Pain Score 1-5, Start date: 03/02/14 9:05:00, Duration: 30 day, Stop date: 04/01/14 9:04:00 Notes: (Same as: [place] 325/5) Do not exceed 4gm/day of acetaminophen. Start Date: 03/02/14 Stop Date: 03/02/14 Status: Discontinued Al hydroxide/Mg hydroxide/simethicone 200 mg-200 mg-20 mg/5 mL oral suspension 30 mL, Route: PO, Drug Form: SUSP, Dosing Weight 88, kg, Q12H, PRN Indigestion, Start date: 03/02/14 9:05:00, Duration: 30 day, Stop date: 04/01/14 9:04:00 Notes: (aluminum hydroxide-magnesium hyd-simethicone 242-375-57lb/5ml 30 ml ud S US) Start Date: 03/02/14 Stop Date: 03/02/14 Status: Discontinued Calcium 600 +D oral tablet PO, Daily, 0 Refill(s) Start Date: 03/02/14 Status: Ordered Effexor XR 150 mg oral capsule, extended release 150 mg=1 cap, PO, Daily, # 90 cap, 0 Refill(s) Start Date: 03/02/14 Status: Ordered LaMICtal 200 mg oral tablet 200 mg=1 tab, PO, BID, # 60 tab, 0 Refill(s) Start Date: 03/02/14 Status: Ordered Levoxyl 175 mcg (0.175 mg) oral tablet 175 microgram=1 tab, PO, Daily, # 90 tab, 0 Refill(s) Start Date: 03/02/14 Status: Ordered lithium 300 mg oral tablet PO, BID, 0 Refill(s) Start Date: 03/02/14 Status: Ordered Mobic 7.5 mg oral tablet 7.5 mg=1 tab, PO, Daily, # 90 tab, 0 Refill(s) Start Date: 03/02/14 Status: Ordered multivitamin 1 tab, PO, Daily, 0 Refill(s) Start Date: 03/02/14 Status: Ordered nitroglycerin SL Tab 0.4 mg, 1 tab, Route: SL, Drug form: TAB, Q5Min, Dosing Weight 88, kg, PRN Chest Pain, Start date: 03/02/14 9:05:00, Duration: 3 doses or times, Stop date: Taj lovelace # of times Notes: (Same as:Nitroquick, Nitrostat)"Do Not Crush" Sublingual tablet Start Date: 03/02/14 Stop Date: 03/02/14 Status: Discontinued Norvasc 5 mg oral tablet 5 mg=1 tab, PO, Daily, # 90 tab, 0 Refill(s) Start Date: 03/02/14 Status: Ordered ondansetron 4 mg, 1 tab, Route: PO, Drug form: TAB, Q8H, Dosing Weight 88, kg, PRN Nausea & Vomiting, Start date: 03/02/14 9:05:00, Duration: 30 day, Stop date: 04/01/14 9 :04:00 Notes: (Same as: Zofran) Start Date: 03/02/14 Stop Date: 03/02/14 Status: Discontinued Saline Flush 0.9% 10 ml, Route: IVP, Drug Form: INJ, Dosing Weight 88, kg, PRN, PRN Line Flush, St art date: 03/02/14 9:05:00, Duration: 30 day, Stop date: 04/01/14 9:04:00 Notes: (Same as: BD Posiflush) Start Date: 03/02/14 Stop Date: 03/02/14 Status: Discontinued Saline Flush 0.9% 10 ml, Route: IVP, Drug Form: INJ, Dosing Weight 88, kg, Q12H, Start date: 03/02 21:00:00, Duration: 30 day, Stop date: 04/01/14 9:00:00 Notes: (Same as: BD Posiflush) Start Date: 03/02/14 Stop Date: 03/02/14 Status: Canceled Tegretol 200 mg oral tablet See Instructions, PO, bid, 0 Refill(s) Special Instructions: bid Start Date: 03/02/14 Status: Ordered tramadol 50 mg oral tablet PO, Q4H, prn pain, 0 Refill(s) Special Instructions: prn pain Start Date: 03/02/14 Status: Ordered Vitamin C 1000 mg oral tablet 1,000 mg=1 tab, PO, Daily, # 90 tab, 0 Refill(s) Start Date: 03/02/14 Status: Ordered Vitamin D3 PO, Daily, 0 Refill(s) Start Date: 03/02/14 Status: Ordered Wellbutrin =1 tab, PO, Daily, 0 Refill(s) Start Date: 03/02/14 Status: Ordered Results ELECTROLYTES Most recent to 1 oldest [Reference Range]: Sodium Lvl [135-145 139 mEq/L mEq/L] (03/02/14 7:47 AM) Potassium Lvl 4.2 mEq/L [3.5-5.1 mEq/L] (03/02/14 7:47 AM) Chloride Lvl [95-109 108 mEq/L mEq/L] (03/02/14 7:47 AM) CO2 [24-32 mEq/L] 26 mEq/L (03/02/14 7:47 AM) AGAP [10.0-20.0 9.2 mEq/L mEq/L] *LOW* (03/02/14 7:47 AM) CHEM PANEL Most recent to 1 oldest [Reference Range]: Creatinine Lvl 1.1 mg/dL [0.5-1.4 mg/dL] (03/02/14 7:47 AM) eGFR 54 mL/min/1.73m2 1 *NA* (03/02/14 7:47 AM) BUN [7-22 mg/dL] 21 mg/dL (03/02/14 7:47 AM) Glucose Lvl [70-99 85 mg/dL 2 mg/dL] (03/02/14 7:47 AM) Calcium Lvl 9.0 mg/dL [8.5-10.5 mg/dL] (03/02/14 7:47 AM) 1Result Comment: The eGFR is calculated using the CKD-EPI formula. In most young, healthy individuals the eGFR will be >90 mL/min/1.73m2. The eGFR declines with age. An eGFR of 60-89 may be normal in some populations, particularly the elderly, for whom the CKD-EPI formula has not been extensively validated. Use of the eGFR is not recommended in the following populations: Individuals with unstable creatinine concentrations, including patients and those with serious co-morbid conditions. Patients with extremes in muscle mass or diet. The data above are obtained from the National Kidney Disease Education Program ( NKDEP) which additionally recommends that when the eGFR is used in patients with extremes of body mass index for purposes of drug dosing, the eGFR should be mul tiplied by the estimated BMI. 2Interpretive Data: Adult reference range values reflect the clinical guidelines of the [place] [employer]. Medications Administered During Your Visit No data available for this section Immunizations No data available for this section
--- OUTSIDE RECORDS SUMMARY | 2018-05-21 06:20 | XMS REPORT | Summary of Care ---
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 (Final) - Cardiac murmur, unspecified (Final) - Essential (primary) hypertension (Final) - Discharge Disposition: Home or Self Care Attending Physician: Gio Hemphill DO Referring Physician: Gio Hemphill DO Vital Signs Most recent to 1 oldest [Reference Range]: Height 160.02 cm (07/18/17 11:03 AM) Blood Pressure 129/79 mmHg [90-140/60-90 mmHg] (07/18/17 11:03 AM) Peripheral Pulse 67 bpm Rate [60-100 bpm] (07/18/17 11:03 AM) Weight 79.545 kg (07/18/17 11:03 AM) Body Mass Index 31.06 m2 (07/18/17 11:03 AM) Problem List Condition Effective Dates Status Health Status Informant Anemia1 Active Atypical chest pain2 06/14/14 Active Benign hypertension3 Active Bipolar disorder4 Active Congestive heart 12/10/11 Active failure5 Dog bite - wound6, 07/15/14 Active 7, 8 Electrocardiogram 02/09/14 Active abnormal9 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 tuinxtebrhndvlrek06, 11 Gwmhgqgvkbvrxm97 Active Impaired fasting 03/11/14 Active xoxdjhknt74 Injury of head14 06/14/14 Active Knee pain15 05/21/08 Active Neck pain16 06/14/14 Active Oyhffjd30 Active Amybjgfxstzirc73 11/24/08 Active Cfjeuwrxppdc86 11/24/08 Active Postmenopausal 08/20/11 Active state20 Posttraumatic stress Active ikrvwdey13 Reactive airways Active dysfunction venaychb15 Shoulder joint 06/14/14 Active pain23 Shoulder pain24 [...] Substance Reaction Severity Status NKDA Active Medications acetaminophen-codeine #4 1 tab, PO, Q6H, 0 Refill(s) Start Date: 07/18/17 Status: Ordered Belbuca 150 mcg buccal film 150 microgram=1 ea, BUC, Q12H, 0 Refill(s) Start Date: 07/18/17 Status: Ordered Eliquis 5 mg oral tablet 5 mg, PO, Q12H, # 60 tab, 3 Refill(s), Pharmacy: [facility] [id number] Start Date: 07/18/17 Status: Ordered furosemide 20 mg oral tablet 20 mg=1 tab, PO, Daily, 0 Refill(s) Start Date: 07/18/17 Stop Date: 07/30/17 Status: Discontinued gabapentin 300 mg oral capsule 300 mg=1 cap, PO, TID, 0 Refill(s) Start Date: 07/18/17 Status: Ordered tizanidine 4 mg oral capsule 8 mg=2 cap, PO, TID, 0 Refill(s) Start Date: 07/18/17 Status: Ordered valACYclovir 500 mg oral tablet 500 mg=1 tab, PO, Q12H, 0 Refill(s) Start Date: 07/18/17 Status: Ordered venlafaxine 150 mg oral tablet, extended release 150 mg=1 tab, PO, Daily, # 30 tab, 0 Refill(s) Start Date: 07/18/17 Status: Ordered warfarin 3 mg oral tablet 3 mg=1 tab, PO, Daily, 0 Refill(s) Start Date: 07/18/17 Stop Date: 07/18/17 Status: Discontinued warfarin 4 mg oral tablet 4 mg=1 tab, PO, Daily, 0 Refill(s) Start Date: 07/18/17 Stop Date: 07/18/17 Status: Discontinued Results No data available for this section Immunizations Given and Recorded Vaccine Date Status Refusal Reason diphtheria/pertussis, acel/tetanus adult1 07/15/14 Given 1Result Comment: [facility]# [id number] ; Data migrated from [employer] on 07/13/2015. Procedures Procedure Date Related Diagnosis [...]
--- OUTSIDE RECORDS SUMMARY | 2018-05-21 06:20 | XMS REPORT | Summary of Care ---
Author Author [facility] [place] Organization [facility] [place] Address Unknown Phone Unavailable Encounter ISAAC Modi(FIN) [id number] Date(s): 03/19/16 - 03/19/16 [facility] [place] [address] [place] [phone] Discharge Disposition: Home or Self Care Attending Physician: Sarah Husain MD Vital Signs No data available for this section Problem List Condition Effective Dates Status Health Status Informant Anemia1 Active Atypical chest pain2 06/14/14 Active Benign hypertension3 Active Bipolar disorder4 Active Congestive heart 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/11 Active failure5 Dog bite - wound6, 07/15/14 Active 7, 8 Electrocardiogram 02/09/14 Active abnormal9 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 tdccdbwwgvypadijq20, 11 Qojbcttfjbtucc35 Active Impaired fasting 03/11/14 Active hgakgivow31 Injury of head14 06/14/14 Active Knee pain15 05/21/08 Active Neck pain16 06/14/14 Active Zqhyvnl76 Active Ferqnxryczfipp17 11/24/08 Active Mkatukntpgxm25 11/24/08 Active Postmenopausal 08/20/11 Active state20 Posttraumatic stress Active dpbuanwm72 Reactive airways Active dysfunction wujpkstr11 Shoulder joint 06/14/14 Active pain23 Shoulder pain24 [...] Medications No data available for this section Results No data available for this section Immunizations Given and Recorded Vaccine Date Status Refusal Reason diphtheria/pertussis, acel/tetanus adult1 07/15/14 Given 1Result Comment: [facility]# [id number] ; Data migrated from [employer] on 07/13/2015. Procedures Procedure Date Related Diagnosis Body Site Hip replacement Operation Tonsillectomy and adenoidectomy Tubal ligation Social History Social History Type Response Substance Abuse Use: None. Alcohol Never Smoking Status Never smoker; Exposure to Tobacco Smoke None; Cigarette Smoking Last 365 Days No; Reg Smoking Cessation Counseling No Assessment and Plan No data available for this section
--- OUTSIDE RECORDS SUMMARY | 2018-05-21 06:20 | XMS REPORT | Continuity of Care Document ---
Author Author [facility] Interface Address Unknown Phone Unavailable Problems Problem Status Onset Date Classification Date Reported Comments Source Encounter for preprocedural cardiovascular examination 08/03/2017 11/05/2017 [facility] ECHO Active 07/18/2017 [facility] FOLLOW UP Active 07/18/2017 [facility] ESTABLISH CARE, HX A-FIB Active 07/11/2017 [facility] ESTABLISH CARE, HX A-FIB Active 07/11/2017 [facility] R29.6, R26.89, G20 Active 11/01/2016 [facility] R29.6, R26.89, G20 Active 11/01/2016 [facility] G20 Active 04/09/2016 [facility] G20 Active 04/09/2016 [facility] M41.9 - "SCOLIOSIS, UNSPECIFIED" Active 03/12/2016 NEEMA Yu 780.4 - DIZZINESS AND G Active 03/02/2015 NEEMA Chen Dog bite - wound<sup>6, 7, 8</sup> Active 07/15/2014 Problem 11/05/2017 Data migrated from [employer] on 11/10/14. [facility] Atyp[facility] pain<sup>2</sup> Active 06/14/2014 Problem 11/05/2017 Data migrated from [employer] on 11/06/14. [facility] Injury of head<sup>14</sup> Active 06/14/2014 Problem 11/05/2017 Data migrated from [employer] on 11/06/14. [facility] Neck pain<sup>16</sup> Active 06/14/2014 Problem 11/05/2017 Data migrated from [employer] on 11/06/14. [facility] Shoulder joint pain<sup>23</sup> Active 06/14/2014 Problem 11/05/2017 Data migrated from [employer] on 11/06/14. [facility] 715.11 - LOC PRIM OSTEOA 719.41 - JOINT Active 05/26/2014 NEEMA Yu Impaired fasting glycaemia<sup>13</sup> Active 03/11/2014 Problem 11/05/2017 Data migrated from [employer] on 11/06/14. [facility] 786.50 Active 02/25/2014 [facility] V72.84 - PRE-OP EXAM NOS Active 02/09/2014 [facility] Electrocardiogram abnormal<sup>9</sup> Active 02/09/2014 Problem 11/05/2017 Data migrated from [employer] on 11/06/14. [facility] UNK Active 01/28/2014 [facility] 715.16/23365 Active 01/28/2014 [facility] 719.46 - JOINT PAIN-L/LE Active 08/05/2013 NEEMA [place] 715.11 - LOC PRIM OSTEOA Active 10/16/2012 NEEMA [place] Congestive heart failure<sup>5</sup> Active 12/10/2011 Problem 11/05/2017 Data migrated from [employer] on 11/06/14. [facility] Postmenopausal state<sup>20</sup> Active 08/20/2011 Problem 11/05/2017 Data migrated from [employer] on 11/06/14. [facility] Osteoarthritis<sup>18</sup> Active 11/24/2008 Problem 11/05/2017 Data migrated from [employer] on 11/06/14. [facility] Palpitations<sup>19</sup> Active 11/24/2008 Problem 11/05/2017 Data migrated from [employer] on 11/06/14. [facility] Shoulder pain<sup>24</sup> Active 06/30/2008 Problem 11/05/2017 Data migrated from [employer] on 11/06/14. [facility] Knee pain<sup>15</sup> Active 05/21/2008 Problem 11/05/2017 Data migrated from [employer] on 11/06/14. NEEMA Chen,[facility] Herpetic gingivostomatitis<sup>10, 11</sup> Resolved 06/10/2002 Problem 11/05/2017 Data migrated from [employer] on 12/24/14. NEEMA Chen,[facility] Localized edema 11/05/2017 [facility] Unspecified atrial fibrillation 10/24/2017 [facility] half-way use of anticoagulants 10/24/2017 [facility] Cardiac murmur, unspecified 11/05/2017 [facility] Essential hypertension 10/24/2017 [facility] Anemia<sup>1</sup> Active Problem 11/05/2017 Data migrated from [employer] on 11/06/14. [facility] Benign hypertension<sup>3</sup> Active Problem 11/05/2017 Data migrated from [employer] on 11/06/14. NEEMA Chen,[facility] Bipolar disorder<sup>4</sup> Active Problem 11/05/2017 Data migrated from [employer] on 11/06/14. NEEMA Chen,[facility] Hypothyroidism<sup>12</sup> Active Problem 11/05/2017 Data migrated from [employer] on 11/06/14. NEEMA Chen,[facility] Obesity<sup>17</sup> Active Problem 11/05/2017 Data migrated from [employer] on 11/06/14. NEEMA Chen,[facility] Posttraumatic stress disorder<sup>21</sup> Active Problem 11/05/2017 Data migrated from [employer] on 11/06/14. 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 [facility]nea<sup>25</sup> Active Problem 11/05/2017 Data migrated from [employer] on 11/06/14. [facility] Nonrheumatic tricuspid insufficiency 11/05/2017 [facility] Heart failure, unspecified 11/05/2017 [facility] Hypertensive heart disease with heart failure 11/05/2017 [facility] Hypothyroidism, unspecified 11/05/2017 [facility] PARKINSON'S DISEASE Active [facility] ENCNTR FOR GENERAL ADULT MEDICAL EXAM W/ Active [facility] Medications Medication Details Route Status Patient Instructions Ordering Provider Order Date Source rivaroxaban 20 MG Oral Tablet [Xarelto] 20 mg=1 tab, PO, QPM, # 30 tab, 3 Refill(s), Pharmacy: [facility] [employer] [facility] [id number] Active 10/24/2017 [facility] Furosemide 40 MG Oral Tablet [Lasix] 40 mg=1 tab, PO, BID, # 60 tab, 3 Refill(s), Pharmacy: [facility] [employer] [id number] Active 07/30/2017 [facility] potassium chloride 20 mEq oral tablet, extended release 20 mEq=1 tab, PO, BID, # 60 tab, 3 Refill(s), Pharmacy: [facility] [employer] [facility] [id number] Active 07/30/2017 [facility] Furosemide 40 MG Oral Tablet 40 mg=1 tab, PO, Daily, 0 Refill(s) Active 07/30/2017 [facility] apixaban 5 MG Oral Tablet [Eliquis] 5 mg, PO, Q12H, # 60 tab, 3 Refill(s), Pharmacy: [facility] [employer] [facility] [id number] Active 07/18/2017 [facility] venlafaxine 150 mg oral tablet, extended release 150 mg=1 tab, PO, Daily, # 30 tab, 0 Refill(s) Active 07/18/2017 [facility] Furosemide 20 MG Oral Tablet 20 mg=1 tab, PO, Daily, 0 Refill(s) No Longer Active 07/18/2017 [facility] valACYclovir 500 mg oral tablet 500 mg=1 tab, PO, Q12H, 0 Refill(s) Active 07/18/2017 [facility] Buprenorphine 0.15 MG Buccal Film [Belbuca] 150 microgram=1 ea, BUC, Q12H, 0 Refill(s) Active 07/18/2017 [facility] gabapentin 300 MG Oral Capsule 300 mg=1 cap, PO, TID, 0 Refill(s) Active 07/18/2017 [facility] tizanidine 4 mg oral capsule 8 mg=2 cap, PO, TID, 0 Refill(s) Active 07/18/2017 [facility] acetaminophen-codeine #4 1 tab, PO, Q6H, 0 Refill(s) Active 07/18/2017 [facility] warfarin 3 mg oral tablet 3 mg=1 tab, PO, Daily, 0 Refill(s) Inactive 07/18/2017 [facility] warfarin 4 mg oral tablet 4 mg=1 tab, PO, Daily, 0 Refill(s) Inactive 07/18/2017 [facility] Saline Flush 0.9% 10 ml, Route: IVP, Drug Form: INJ, Dosing Weight 88, kg, Q12H, Start date: 03/02/14 21:00:00, Duration: 30 day, Stop date: 04/01/14 9:00:00Notes: (Same as: BD Posiflush) Inactive 03/03/2014 [facility] Saline Flush 0.9% 10 ml, Route: IVP, Drug Form: INJ, Dosing Weight 88, kg, PRN, PRN Line Flush, Start date: 03/02/14 9:05:00, Duration: 30 day, Stop date: 04/01/14 9:04:00Notes: (Same as: BD Posiflush) Inactive 03/02/2014 [facility] Ondansetron 4 mg, 1 tab, Route: PO, Drug form: TAB, Q8H, Dosing Weight 88, kg, PRN Nausea & Vomiting, Start date: 03/02/14 9:05:00, Duration: 30 day, Stop date: 04/01/14 9:04:00Notes: (Same as: Zofran) Inactive 03/02/2014 [facility] Acetaminophen 325 MG / Hydrocodone Bitartrate 5 MG Oral Tablet 1 tab, Route: PO, Drug Form: TAB, Dosing Weight 88, kg, Q4H, PRN Pain Score 1-5, Start date: 03/02/14 9:05:00, Duration: 30 day, Stop date: 04/01/14 9:04:00Notes: (Same as: [place] 325/5) Do not exceed 4gm/day of acetaminophen. Inactive 03/02/2014 [facility] Nitroglycerin 0.4 mg, 1 tab, Route: SL, Drug form: TAB, Q5Min, Dosing Weight 88, kg, PRN Chest Pain, Start date: 03/02/14 9:05:00, Duration: 3 doses or times, Stop date: Limited # of timesNotes: (Same as:Nitroquick, Nitrostat) "Do Not Crush" Sublingual tablet Inactive 03/02/2014 [facility] Aluminum Hydroxide 40 MG/ML / Magnesium Hydroxide 40 MG/ML / Simethicone 4 MG/ML Oral Suspension 30 mL, Route: PO, Drug Form: SUSP, Dosing Weight 88, kg, Q12H, PRN Indigestion, Start date: 03/02/14 9:05:00, Duration: 30 day, Stop date: 04/01/14 9:04:00Notes: (aluminum hydroxide-magnesium hyd-sim ethicone [phone]/5ml 30 ml ud NAS) Inactive 03/02/2014 [facility] Amlodipine 5 MG Oral Tablet [Norvasc] 5 mg=1 tab, PO, Daily, # 90 tab, 0 Refill(s) Active 03/02/2014 [facility] Calcium 600 +D oral tablet PO, Daily, 0 Refill(s) Active 03/02/2014 [facility] meloxicam 7.5 MG Oral Tablet [Mobic] 7.5 mg=1 tab, PO, Daily, # 90 tab, 0 Refill(s) Active 03/02/2014 [facility] Vitamin C 1000 mg oral tablet 1,000 mg=1 tab, PO, Daily, # 90 tab, 0 Refill(s) Active 03/02/2014 [facility] Carbamazepine 200 MG Oral Tablet [Tegretol] See Instructions, PO, bid, 0 Refill(s)Special Instructions: bid Active 03/02/2014 [facility] 24 HR venlafaxine 150 MG Extended Release Capsule [Effexor] 150 mg=1 cap, PO, Daily, # 90 cap, 0 Refill(s) Active 03/02/2014 [facility] lithium 300 mg oral tablet PO, BID, 0 Refill(s) Active 03/02/2014 [facility] lamotrigine 200 MG Oral Tablet [Lamictal] 200 mg=1 tab, PO, BID, # 60 tab, 0 Refill(s) Active 03/02/2014 [facility] tramadol hydrochloride 50 MG Oral Tablet PO, Q4H, prn pain, 0 Refill(s)Special Instructions: prn pain Active 03/02/2014 [facility] Wellbutrin =1 tab, PO, Daily, 0 Refill(s) Active 03/02/2014 [facility] Levothyroxine Sodium 0.175 MG Oral Tablet [Levoxyl] 175 microgram=1 tab, PO, Daily, # 90 tab, 0 Refill(s) Active 03/02/2014 [facility] Ascorbic Acid / Biotin / Folic Acid / Niacin / pantothenate / pyridoxine / Riboflavin / Thiamine / Vitamin B 12 1 tab, PO, Daily, 0 Refill(s) Active 03/02/2014 [facility] Vitamin D3 PO, Daily, 0 Refill(s) Active 03/02/2014 [facility] Allergies, Adverse Reactions, Alerts Substance Category Reaction Severity Reaction type Status Date Reported Comments Source Immunizations Immunization Date Given Site Status Last Updated Comments Source diphtheria/pertussis, acel/tetanus adult<sup>1</sup> 07/15/2014 Right Deltoid completed [facility] Result Comment: [facility]# [id number] ; Data migrated from [employer] on 07/13/2015. NEEMA Chen,[facility] Results Order Name Results Value Reference Range Date Interpretation Comments Source Brain scan SPECT NM Brain scan SPECT NM EXAM: NM Brain Imaging SPECT DATE: 04/24/2016 12:25 PM [facility] INDICATION: Tremor in the hands and difficulty maintaining balance while walking, evaluate for Parkinson disease COMPARISON: None TECHNIQUE: After intravenous administration of 3.7 mCi of I-123 Ioflupane, delayed SPECT images of the head were obtained at 4 hours post injection. FINDINGS: Right striatum: There is moderately decreased tracer uptake in the right putamen with a Z score of -3.1 (Z scores represent standard deviation from normal age match population and are significant if less than -1.6). Relatively preserved tracer uptake in the right caudate with a Z score of -2.95. The right striatum contributes 52% of the remaining dopamine transporter function with a Z score of -3.11 . Left striatum: Moderately decreased tracer uptake in the left putamen with a Z score of -3.44. Tracer uptake is mildly decreased in the left caudate with a Z score of -3.28. The left striatum contributes 48% of the remaining dopamine transporter function with a Z score of -3.3 . The remainder of tracer distribution in background brain parenchyma is within normal limits. IMPRESSION: The scan findings are suggestive of dysfunction of the dopamine transporters in the bilateral putamina and left caudate suggestive of Parkinson disease. 04/24/2016 - - This report was dictated by a Political Reporter/Fellow. I have personally reviewed the images as well as the Resident's interpretation and agree with the findings. Read by: Roel Lerner MD Resident: Roel Lerner MD Dictated Date/time: 04/25/16 09:40 Electronically Signed by: Lilliam Thornton MD 04/25/16 17:05 FINAL REPORT [facility] Spine T-L (or entire) 2-3 Views DX Spine T-L (or entire) 2-3 Views DX CLINICAL HISTORY: scoliosis/kyphoscoliosis AGE: 65 years GENDER: Female TECHNIQUE: Scoliosis radiographs, 2 views. Standing images of the complete spine were obtained after stitching separate images of the cervical, thoracic and lumbar spine together. COMPARISON: None FINDINGS: There is preservation of the normal cervical lordosis. There is moderate kyphosis of the thoracic spine with moderate degenerative disease in the lower lumbar spine. There is rotatory levoscoliosis of the thoracolumbar spine measuring 17 degrees as measured from the inferior endplate of T11 to the superior endplate of L5. Sagittal balance: Positive sagittal balance measuring approximately 11 cm. Please note accurate measurement is limited due to underpenetration of the lumbosacral spine. As such the posterior aspect of the superior S1 vertebral body is suboptimally visualized. Coronal balance: Positive coronal balance measuring 11 cm. Postoperative changes from right shoulder arthroplasty and left hip arthroplasty are noted and partially visualized. IMPRESSION: Rotatory levoscoliosis of the thoracolumbar spine. There is positive sagittal and coronal balance with measurements as above. 03/19/2016 - - Read by: Wesley Giron MD Dictated Date/time: 03/19/16 14:50 Electronically Signed by: Wesley Giron MD 03/20/16 11:35 FINAL REPORT NEEMA Chen Neck soft tissue DX Neck soft tissue DX EXAM: NECK SOFT TISSUE DX DATE: 03/16/2016 2:36 PM CDT . HISTORY: 76 year old female with c/o cervical pain radiates down into thoracic spine and into right arm with numbness. Pain radiates into shoulder blades. . TECHNIQUE: Frontal lateral views of the neck soft tissues COMPARISON: Cervical spine CT of 06/16/2014 FINDINGS: The airway is patent. The epiglottis and aryepiglottic fold shadows are normal. The retropharyngeal/prevertebral soft tissues are normal. There is C5-C6 degenerative disc disease and spondylosis. IMPRESSION: 1. No abnormality of the neck soft tissues 2. Cervical spine degenerative change, and completely evaluated 03/16/2016 - - Read by: George Mahoney MD Dictated Date/time: 03/16/16 15:22 Electronically Signed by: George Mahoney MD 03/16/16 15:23 FINAL REPORT [facility] Spine cervical 2 or 3 view DX Spine cervical 2 or 3 view DX Examination: Cervical spine, 3 views History: 723.1 / neck pain Comparison: None. Findings: Multiple views of the cervical spine show visualization through the top of the C7 vertebral body on the lateral view. No acute vertebral body height loss or subluxation is seen. Moderate to severe degenerative disc disease of the lower cervical spine at C5-C6 and C6-C7 is seen with disc height loss and marginal osteophyte formation. Mild degenerative disc disease at C4-C5 is also seen. Odontoid process is intact. Prevertebral soft tissues are unremarkable. IMPRESSION: Moderate to severe degenerative disc disease of the lower cervical spine. SL: 16 06/16/2014 - - Read by: Pradip Angelo MD Dictated Date/time: 06/16/14 12:55 Electronically Signed by: Pradip Angelo MD 06/16/14 12:56 FINAL REPORT [facility] [place] Chest 2 views Chest 2 views Examination: Chest x-ray, 2 views History: 786.59 / chest pain Comparison: 02/09/2014 Findings: The lungs are clear and without focal consolidation. The cardiomediastinal silhouette is within normal limits. No pleural effusion or pneumothorax is seen. The osseous structures are without focal abnormality. IMPRESSION: No acute cardiopulmonary disease. SL: 16 06/16/2014 - - Read by: Pradip Angelo MD Dictated Date/time: 06/16/14 12:54 Electronically Signed by: Pradip Angelo MD 06/16/14 12:55 FINAL REPORT [facility] [place] Brain wo contrast CT Brain wo contrast CT CT scan of the head without contrast: Exam reason: 959.01 / trauma See Clinic Indication Multiple computerized axial tomograms of the head were obtained without contrast. Age-related cortical and cerebellar volume loss with compensatory enlargement of the ventricles and subarachnoid spaces is noted. Vascular calcification is noted. There is no acute cortical infarction or hemorrhage noted. There is no mass-effect or midline shift demonstrated. The ventricles are otherwise normal in size, shape and position. The base of skull and bony calvarium are intact. IMPRESSION: No acute intracranial abnormality is noted. Senescent changes are noted intracranially. SL:13 06/16/2014 - - Read by: Chai Jeffery MD Dictated Date/time: 06/16/14 12:41 Electronically Signed by: Chai Jeffery MD 06/16/14 12:42 FINAL REPORT [facility] [place] Shoulder wo contrast MRI Shoulder wo contrast MRI PROCEDURE: MR Shoulder without contrast REASON FOR EXAM: See Clinic Indication CLINICAL INDICATION: 715.11 Osteoarthrosis, Localized, Primary, Involving Shoulder Region, 63-year-old female ports diffuse bilateral shoulder pain for one year MR LEFT SHOULDER COMPARISON: None available. Examination detail is limited by motion artifact. ROTATOR CUFF: 1. Mild thickening and moderate abnormal signal in the distal supraspinatus tendon compatible with moderate tendinopathy. No supraspinatus tear. 2. Mild thickening and moderate abnormal signal in the distal infraspinatus tendon compatible with moderate tendinopathy. No infraspinatus tear. 3. Mild tendinopathy involving the superior fibers of the distal subscapularis. 4. No rotator cuff muscle atrophy. 5. Mild subacromial/subdeltoid bursitis. LABRUM AND BICEPS TENDON: 6. Complex degenerative tearing throughout the glenoid labrum. 7. Extra-articular biceps tenosynovitis OSSEOUS/ARTICULAR: 8. The acromioclavicular joint demonstrates normal alignment without spurring. 9. Advanced glenohumeral arthrosis with diffuse complete cartilage loss, [id number] joint space narrowing, and severe diffuse subchondral cystic change and sclerosis with marginal spurring of the glenoid and humeral articular surfaces. 10. No fracture or aggressive osseous lesion. 11. Small joint effusion. IMPRESSION: 1. Moderate supraspinatus and infraspinatus tendinopathy and mild subscapularis tendinopathy without rotator cuff tear. 2. Advanced glenohumeral arthrosis with [id number] joint space narrowing and severe subchondral cystic change and sclerosis and marginal spurring. 3. Multifocal degenerative labral tearing. 4. Extra-articular long head of the biceps tenosynovitis. Thank you for referring your patient to [facility] and [facility]. SL: 16 06/01/2014 - - Read by: Mina Morales MD Dictated Date/time: 06/01/14 16:18 Electronically Signed by: Mina Morales MD 06/01/14 16:29 FINAL REPORT [facility] [place] Shoulder wo contrast MRI Shoulder wo contrast MRI PROCEDURE: MR Shoulder without contrast REASON FOR EXAM: See Clinic Indication CLINICAL INDICATION: 715.11 Osteoarthrosis, Localized, Primary, Involving Shoulder Region, 63-year-old female ports diffuse bilateral shoulder pain for one year MR RIGHT SHOULDER COMPARISON: None available. ROTATOR CUFF: 1. Mild thickening and moderate abnormal signal in the posterior aspect of the distal supraspinatus tendon compatible with moderate tendinopathy. There is trace concealed intrasubstance tear measuring 1 x 5 x 10 mm (coronal series 5 image 12 and sagittal series 6 image 12). 2. Moderate thickening and abnormal signal throughout the more anterior fibers of the distal infraspinatus tendon compatible moderate tendinopathy. There is also relatively large intratendinous cyst formation measuring approximately 11 x 7 x 16 mm compatible with chronic intrasubstance tear (coronal series 5 image 7 and sagittal series 6 image 10). No evidence of full-thickness tear. No tendon retraction. 3. Mild thickening and abnormal signal involving the superior fibers of the distal subscapularis compatible with mild tendinopathy. No subscapularis tear is evident. 4. No rotator cuff muscle atrophy. 5. Trace subacromial/subdeltoid fluid. LABRUM AND BICEPS TENDON: 6. Severe diffuse degenerative tearing throughout the glenoid labrum with multifocal paralabral cyst formation. 7. Moderate intra-articular long head of biceps tendinopathy. Mild extra-articular biceps tenosynovitis. OSSEOUS/ARTICULAR: 8. Mild hypertrophic acromioclavicular arthropathy. 9. Advanced glenohumeral arthrosis with diffuse complete cartilage loss, [id number]-[id number] joint space narrowing, and severe diffuse subchondral cystic change and sclerosis with marginal spurring of the glenoid and humeral articular surfaces. 10. No fracture or aggressive osseous lesion. 11. Small joint effusion. IMPRESSION: 1. Moderate supraspinatus and infraspinatus tendinopathy with chronic concealed intrasubstance tears, larger within the infraspinatus. 2. Mild subscapularis tendinopathy. 3. No definite full-thickness cuff tear. No rotator cuff tendon retraction. 4. Advanced glenohumeral arthrosis with nclg-[id number]-[id number] joint space narrowing and severe subchondral cystic change and sclerosis and marginal spurring. 5. Severe diffuse degenerative tearing of the glenoid labrum with multifocal paralabral cyst formation. 6. Long head of the biceps tendinopathy and tenosynovitis. Thank you for referring your patient to [facility] and [facility]. SL: 16 06/01/2014 - - Read by: Mina Morales MD Dictated Date/time: 06/01/14 16:07 Electronically Signed by: Mina Morales MD 06/01/14 16:18 FINAL REPORT [facility] [place] CHEM PANEL eGFR 54 mL/min/1.73m2 03/02/2014 1Result Comment: The eGFR is calculated using [...] from the National Kidney Disease Education Program (NKDEP) which additionally recommends that when the eGFR is used in patients with extremes of body mass index for purposes of drug dosing, the eGFR should be multiplied by the estimated BMI. [facility] CHEM PANEL Creatinine Lvl 1.1 mg/dL 0.5 - 1.4 03/02/2014 [facility] CHEM PANEL BUN 21 mg/dL 7 - 22 03/02/2014 [facility] CHEM PANEL Glucose Lvl 85 mg/dL 70 - 99 03/02/2014 2Interpretive Data: Adult reference range values reflect the clinical guidelines of the [place] [employer]. [facility] CHEM PANEL Potassium Lvl 4.2 meq/L 3.5 - 5.1 03/02/2014 [facility] CHEM PANEL Chloride Lvl 108 meq/L 95 - 109 03/02/2014 [facility] CHEM PANEL CO2 26 meq/L 24 - 32 03/02/2014 [facility] CHEM PANEL Calcium Lvl 9.0 mg/dL 8.5 - 10.5 03/02/2014 [facility] CHEM PANEL AGAP 9.2 meq/L 10.0 - 20.0 03/02/2014 [facility] CHEM PANEL Sodium Lvl 139 meq/L 135 - 145 03/02/2014 [facility] Chest 2 views Chest 2 views CHEST RADIOGRAPH 2 VIEWS INDICATION: Preoperative evaluation COMPARISON: None FINDINGS: There is no consolidation, pleural effusion, or pneumothorax. No suspicious pulmonary nodules are identified. The cardiomediastinal silhouette and pulmonary vasculature are within normal limits. No acute bony abnormalities are seen. IMPRESSION: No acute intrathoracic abnormalities are visualized. SL: 16 02/09/2014 - - Read by: Christ Hernandez MD Dictated Date/time: 02/09/14 16:11 Electronically Signed by: Christ Hernandez MD 02/09/14 16:11 FINAL REPORT [facility] [place] Knee 4+ views unilateral Knee 4+ views unilateral EXAM: Left knee 4 views DATE: Aug 06, 2013 02:15:21 PM INDICATION:pain See Clinic Indication COMPARISON: None TECHNIQUE: Weight-bearing AP, weight-bearing PA, lateral, and sunrise views of the left knee were obtained FINDINGS: There is severe tricompartment joint space narrowing of the left knee with bone on bone articulation seen within the medial joint compartment. Extensive osteophytosis and spurring of all 3 joint compartments is present. A small joint effusion is identified. No fracture or malalignment of the joint is noted. Limited evaluation of the right knee demonstrates a bipolar total knee prosthesis in good position without evidence of hardware loosening or failure. IMPRESSION: 1. Severe tricompartment degenerative osteoarthrosis of the left knee. 2. Right knee bipolar total knee prosthesis in apparent good position without evidence of loosening or failure 08/06/2013 - - Read by: Luis Fernando Barrera Dictated Date/time: 08/06/13 17:44 Electronically Signed by: Luis Fernando Barrera MD 08/06/13 17:47 FINAL REPORT [facility] [place] Shoulder arthrogram Shoulder arthrogram EXAM: FLUOROSCOPY GUIDED THERAPEUTIC RIGHT SHOULDER ARTHROGRAM DATE: October 22, 2012 02:22:00 PM INDICATION: Osteoarthritis of the right shoulder. COMPARISON: None available TECHNIQUE: Consent: A written, informed consent was obtained from the patient prior to the procedure. The skin was prepped and draped in the usual fashion under aseptic precautions. Dilute local lidocaine was used for local anesthesia. Under fluoroscopic guidance a 22 gauge long spinal needle was used to access the shoulder joint. 1.5cc of Omnipaque was injected under fluoroscopic guidance to confirm intra-articular needle positioning. 4cc of a mixture of 1cc Kenalog and 3cc ropivacaine were injected into the shoulder joint. 0.3 minutes of total fluoroscopy time was utilized. No immediate complications. Dr. Calero, attending, was present for the procedure salmeron components. IMPRESSION: Technically successful right shoulder therapeutic arthrogram. 10/22/2012 - - This report was dictated by a Political Reporter/Fellow. I have personally reviewed the images as well as the Resident's interpretation and agree with the findings. Read by: Luis Salinas Resident: Luis Salinas Dictated Date/time: 10/22/12 14:48 Electronically Signed by: Benson Calero MD 10/22/12 18:03 [facility] [place] Vital Sign[facility] Vital Sign Value Date Comments Source BMI Calculated 31.06 07/30/2017 [facility] Weight 79.545 07/30/2017 [facility] Height 160.02 cm 07/30/2017 [facility] Heart Rate 65 07/30/2017 [facility] Systolic (mm Hg) 124 07/30/2017 [facility] Diastolic (mm Hg) 63 07/30/2017 [facility] Height 160.02 cm 07/18/2017 [facility] BMI Calculated 31.06 07/18/2017 [facility] Weight 79.545 07/18/2017 [facility] Systolic (mm Hg) 129 07/18/2017 [facility] Diastolic (mm Hg) 79 07/18/2017 [facility] Heart Rate 67 07/18/2017 [facility] Height 160.02 cm 03/02/2014 [facility] BMI Calculated 34.37 03/02/2014 [facility] Weight 88 03/02/2014 [facility] Encounters Location Location Details Encounter Type Encounter Number Reason For Visit Attending Provider ADM Date DC Date Status Source OD [id number] 715.11 - LOC PRIM OSTEOA HANNA FULLICK 10/22/2012 10/22/2012 Active [facility] [place] [facility] [id number] Mirtha Briceno 08/06/2013 08/07/2013 [facility] [id number] Emerson Henson 03/02/2014 03/02/2014 [facility] [place] [facility] [id number] Radha Rodriguez [facility]/16[facility]2014 [facility] [id number] RADHA RODRIGUEZ 02/08/2015 Active [facility] Outpatient [id number] RADHA RODRIGUEZ 02/23/2015 [facility] [place] [facility] [place] [facility] [id number] Sarah Jigara 03/16/2016 03/17/2016 [facility] [place] [facility] [place] [facility] [id number] Sarah Sarinakonda 03/19/2016 03/20/2016 [facility] Outpatient [id number] Sarah Guthikonda 04/24/2016 04/25/2016 [facility] [id number] Gio Joby 07/18/2017 07/19/2017 [facility] Outpatient [id number] Gio Joby 07/30/2017 07/31/2017 [facility] OD [id number] 715.11 - LOC PRIM OSTEOA HANNA FULLICK Cancel [facility] Procedures Procedure Code Date Perfomer Comments Source Hip replacement 229840871 [facility] [place] Operation [id number] [facility] [place] Tonsillectomy and adenoidectomy [id number] [facility] [place] Tubal ligation [id number] [facility] [place] Hip replacement [id number] [facility] Operation [id number] [facility] Tonsillectomy and adenoidectomy [id number] [facility] Tubal ligation [id number] [facility]
--- OUTSIDE RECORDS SUMMARY | 2018-05-21 06:20 | XMS REPORT | Summary of Care ---
Author Author [facility] [place] Organization [facility] [place] Address Unknown Phone Unavailable Encounter ISAAC Modi(FIN) [id number] Date(s): 03/16/16 - 03/16/16 [facility] [place] [address] [place] [phone] Discharge Disposition: Home or Self Care Attending Physician: Sarah Husain MD Vital Signs No data available for this section Problem List Condition Effective Dates Status Health Status Informant Anemia1 Active Atypical chest pain2 06/14/14 Active Benign hypertension3 Active Bipolar disorder4 Active Congestive heart 12/10/11 Active failure5 Dog bite - wound6, 07/15/14 Active 7, 8 Electrocardiogram 02/09/14 Active abnormal9 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 2Data migrated from [employer] on 11/06/14. 3Data migrated from [employer] on 11/06/14. 4Data migrated from [employer] on 11/06/14. 5Data migrated from [employer] on 11/06/14. 6Data migrated from [employer] on 12/15/14. 7Data migrated from [employer] on 7/8/15. 8Data migrated from [employer] on 11/10/14. [...] diphtheria/pertussis, acel/tetanus adult1 07/15/14 Given 1Result Comment: [facility]# [id number] ; Data migrated from [employer] on [...]
--- OUTSIDE RECORDS SUMMARY | 2018-05-21 06:20 | XMS REPORT | Summary of Care ---
Author Author [facility] Organization [facility] Address Unknown Phone Unavailable Encounter HQ Rian(FIN) [id number] Date(s): 04/24/16 - 04/24/16 [facility] [address] [phone] Discharge Disposition: Home or Self Care Attending Physician: Sarah Husain MD Referring Physician: Sarah Husain MD Vital Signs No data available for this section Problem List Condition Effective Dates Status Health Status Informant Anemia1 Active Atypical chest pain2 06/14/14 Active Benign hypertension3 Active Bipolar disorder4 Active Congestive heart 12/10/11 Active failure5 Dog bite - wound6, 07/15/14 Active 7, 8 Electrocardiogram 02/09/14 Active abnormal9 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 kzgbhxvcbyhcpsnoq19, 11 Pqrtcecyfevwha80 Active Impaired fasting 03/11/14 Active ebuurmrtf01 Injury of head14 06/14/14 Active Knee pain15 05/21/08 Active Neck pain16 06/14/14 Active Ugixwtc20 Active Rsyhnsphvyjfvs49 11/24/08 Active Ntzabpurvxws72 11/24/08 Active Postmenopausal 08/20/11 Active state20 Posttraumatic stress Active Reactive airways Active dysfunction yvwgyafa91 Shoulder joint 06/14/14 Active pain23 Shoulder pain24 [...] diphtheria/pertussis, acel/tetanus adult1 07/15/14 Given 1Result Comment: [facility]# [id number] ; Data migrated from [employer] on [...]
--- OUTSIDE RECORDS SUMMARY | 2018-05-21 06:20 | XMS REPORT ---
Author Author [facility] Address Unknown Phone Unavailable Care Team Providers Care Superintendent House Name Role Phone Unavailable Unavailable Payers Payer Name Policy Type Policy Number Effective Date Expiration Date Problems This patient has no known problems. Allergies, Adverse Reactions, Alerts Allergy Name Allergy Type Status Severity Reaction(s) Onset Date Inactive Date Treating Clinician Comments No Known Allergies DA Active U 2018-05-09 00:00:00 No Known Allergies DA Active U 2016-12-17 00:00:00 Medications This patient has no known medications.
[2018-05-21 09:35] VITALS: BP 152/79
== END | disposition home or self-care (01) ==
LOC: OR 06:16
PROVIDERS: ATTEND Internal Medicine Gastroenterology
DX: D50.9 Iron deficiency anemia, unspecified (principal); K31.7 Polyp of stomach and duodenum; K29.60 Other gastritis without bleeding; K29.80 Duodenitis without bleeding; K31.9 Disease of stomach and duodenum, unspecified; K44.9 Diaphragmatic hernia without obstruction or gangrene; K57.30 Diverticulosis of large intestine without perforation or abscess without bleeding; K64.8 Other hemorrhoids; K64.4 Residual hemorrhoidal skin tags; Z71.3 Dietary counseling and surveillance; I48.91 Unspecified atrial fibrillation; G47.33 Obstructive sleep apnea (adult) (pediatric); G89.29 Other chronic pain; M19.90 Unspecified osteoarthritis, unspecified site; E66.9 Obesity, unspecified; F41.9 Anxiety disorder, unspecified; F32.9 Major depressive disorder, single episode, unspecified; Z68.31 Body mass index [BMI] 31.0-31.9, adult; Z01.812 Encounter for preprocedural laboratory examination
CPT/HCPCS: 36415; 43239; 45378; 85025; 88305; 88312; J2704